=== PATIENT | male | born 1980 | race Hispanic/Latino ===

== ENCOUNTER 2023-09-09 18:37 | Inpatient (IN) | payer MEDICAID, SELFPAY ==
[~2023-09-09 18:37] MED LIST: Iopamidol-370 76% 500 ML MDV (1 ML CHARGE) ONE
[2023-09-09] MEDS ORDERED: Morphine 4 MG/ML VIAL ONE ×2 (19:38→21:31)
[2023-09-09] MEDS ORDERED: Vancomycin 1 GM/200 ML (FROZEN) BAG ONE (20:13)
[2023-09-09] MEDS ORDERED: Acetaminophen 500 MG TAB ONE (20:13)
[2023-09-09] MEDS ORDERED: Piperacillin/Tazobactam 3.375 GM VIAL ONE (20:13)
[2023-09-09] MEDS ORDERED: Sodium Chloride 0.9% 100 ML ONE (20:14)
[2023-09-09 20:20] LABS: #Basophils 0.1 thou/uL (0.0-0.2); #Monocytes 1.1 thou/uL (0.11-0.59); #Neutrophils 13.4 thou/uL (1.40-6.50); %Basophils 0.3 % (0.0-1.0); %Eosinophils 0.1 % (0.0-10.0); %Lymphocytes 9.1 % (21.0-51.0); Hematocrit 45.2 % (42.0-52.0); Hemoglobin 16.2 g/dL (14.0-18.0); Mean Corpuscular HGB CONC 35.8 g/dL (32.0-36.0); Mean Corpuscular Volume 92.1 fl (78.0-98.0); Mean Platelet Volume 11.1 fL (7.4-10.4); Platelet Count 210 10x3/uL (130-400); RBC Distribution Width 10.8 % (11.5-14.5); Red Blood Cell (RBC) Count 4.91 mill/uL (4.70-6.10); White Blood Cell (WBC) Count 16.2 10x3/uL (4.8-10.8)
[2023-09-09] MEDS ORDERED: Clindamycin/D5W 900 MG in Premix 1 BAG IVPB SCH (20:30)
[2023-09-09 20:45] LABS: INR-International Normal Ratio 1.1; Prothrombin Time 14.6 sec (12.0-14.7)
[2023-09-09 20:46] LABS: PTT 29.5 sec (22.9-36.1)
[2023-09-09 20:49] LABS: CRP (Inflammatory) 31.78 mg/dL (= or < 0.5)
[2023-09-09 20:51] LABS: ALT (SGPT) 11 U/L (8-55); AST (SGOT) 10 U/L (5-34); Albumin 4.1 g/dL (3.5-5.0); Alkaline Phosphatase 134 U/L (40-110); Anion Gap 19 mmol/L (10-20); BUN (Urea Nitrogen) 8 mg/dL (8.9-20.6); Bilirubin, Total 1.2 mg/dL (0.2-1.2); Calc. Creatinine Clearance 0 mL/min (70-130); Calcium 9.3 mg/dL (7.8-10.44); Carbon Dioxide 20 mmol/L (22-29); Chloride 99 mmol/L (98-107); Estimated GFR 112; Globulin 3.8 g/dL (2.4-3.5); Glucose 278 mg/dL (70-105); Potassium 3.8 mmol/L (3.5-5.1); Protein, Total 7.9 g/dL (6.0-8.3); Sodium 134 mmol/L (136-145)
[2023-09-09] MEDS ORDERED: fentaNYL PF 100 MCG/2 ML SYRINGE ONE ×2 (21:05→22:51)
[2023-09-09] MEDS ORDERED: Dexmedetomidine 200 MCG/2 ML VIAL ONE (21:32)
[2023-09-09] MEDS ORDERED: Ondansetron HCl/PF 4 MG/2 ML Vial IVP PRN (21:48)
[2023-09-09] MEDS ORDERED: PACU-Morphine 4MG/ML VIAL SLOW IVP PRN (21:48)
[2023-09-09] MEDS ORDERED: Promethazine HCl 25 MG/ML VIAL IM PRN (21:48)
[2023-09-09] MEDS ORDERED: Ondansetron PF 4 MG/2 ML Vial ONE (21:54)
[2023-09-09] MEDS ORDERED: Succinylcholine 200 MG/10 ml SYRINGE FS ONE (21:54)
[2023-09-09] MEDS ORDERED: Lidocaine 1% PF 5 ML VIAL ONE (21:54)
[2023-09-09] MEDS ORDERED: PROPOFOL 200 MG/20 ML VIAL ONE (21:54)
[2023-09-09] MEDS ORDERED: Rocuronium Bromide 10 MG/ML (10ML VIAL) ONE (21:54)
[2023-09-10 00:57] VITALS: BMI 30.9
[2023-09-10] MEDS ORDERED: Acetaminophen 650 MG Suppository PR PRN (01:18)
[2023-09-10] MEDS ORDERED: Acetaminophen 325 MG TAB PO PRN (01:18)
[2023-09-10] MEDS ORDERED: Ondansetron ODT 4 MG TAB PO PRN (01:18)
[2023-09-10] MEDS ORDERED: Ondansetron PF 4 MG/2 ML Vial IVP PRN (01:18)
[2023-09-10] MEDS ORDERED: Acetaminophen 500 MG TAB PO PRN (01:19)
[2023-09-10] MEDS: Sodium Chloride 0.9% 1,000 ML IV SCH ×2 (01:31→06:44)
[2023-09-10] MEDS ORDERED: Dextrose 5% in Water 1,000 ML IV PRN (01:33)
[2023-09-10] MEDS ORDERED: Dextrose 50% Abboject 50 ML SYRINGE SLOW IVP PRN (01:33)
[2023-09-10] MEDS ORDERED: Glucagon 1 MG/ML KIT IM PRN (01:33)
[2023-09-10] MEDS: Piperacillin/Tazobactam 3.375 GM in Sodium Chloride 0.9% 100 ML IVPB SCH ×3 (01:46→17:58)
[2023-09-10] MEDS: Morphine 2 MG/ML VIAL SLOW IVP PRN ×5 (01:50→22:18)
[2023-09-10] MEDS: HumaLOG 300 UNITS/3 ML VIAL SC PRN ×3 (05:34→22:19)
[2023-09-10] MEDS: Vancomycin (BATCH) 1.25 GM in Premix 1 BAG IVPB SCH ×2 (05:34→16:20)
[2023-09-10 06:18] LABS: Hemoglobin A1c 8.9 % (4.0-6.0)
[2023-09-10 06:22] LABS: #Basophils 0.1 thou/uL (0.0-0.2); #Eosinphils 0.1 thou/uL (0.0-0.7); #Monocytes 1.2 thou/uL (0.11-0.59); #Neutrophils 10.4 thou/uL (1.40-6.50); %Basophils 0.4 % (0.0-1.0); %Eosinophils 0.7 % (0.0-10.0); %Lymphocytes 11.5 % (21.0-51.0); %Monocytes 9.2 % (0.0-10.0); %Neutrophils 77.5 % (42.0-75.0); Hematocrit 39.6 % (42.0-52.0); Hemoglobin 13.7 g/dL (14.0-18.0); Mean Corpuscular HGB CONC 34.6 g/dL (32.0-36.0); Mean Corpuscular Hemoglobin 32.9 pg (27.0-31.0); Mean Platelet Volume 11.2 fL (7.4-10.4); Platelet Count 183 10x3/uL (130-400); RBC Distribution Width 11.2 % (11.5-14.5); Red Blood Cell (RBC) Count 4.16 mill/uL (4.70-6.10); White Blood Cell (WBC) Count 13.4 10x3/uL (4.8-10.8)
[2023-09-10 06:24] LABS: Mean Corpuscular Volume 95.2 fl (78.0-98.0)
[2023-09-10 06:36] LABS: Anion Gap 17 mmol/L (10-20); BUN (Urea Nitrogen) 8 mg/dL (8.9-20.6); Calc. Creatinine Clearance 162 mL/min (70-130); Calcium 8.1 mg/dL (7.8-10.44); Carbon Dioxide 21 mmol/L (22-29); Chloride 102 mmol/L (98-107); Estimated GFR 116; Glucose 203 mg/dL (70-105); Potassium 3.5 mmol/L (3.5-5.1); Sodium 136 mmol/L (136-145)
[2023-09-10] MEDS: HYDROcodone/Acetaminophen 5/325 mg Tablet PO PRN (08:37)
[2023-09-10] MEDS: Famotidine 20 MG TAB PO SCH ×2 (08:38→22:19)
[2023-09-10] MEDS ORDERED: Vancomycin 1 GM in Premix 1 BAG IVPB SCH (09:00)
[2023-09-10] MEDS ORDERED: metFORMIN 500 MG TAB PO SCH (09:30)
[2023-09-10] MEDS ORDERED: Benzocaine 20% Spray 60 ML CAN PO PRN (15:54)
[2023-09-10] MEDS ORDERED: Lidocaine 4% Patch TD SCH (16:00)
[2023-09-10] MEDS: metFORMIN 500 MG TAB PO SCH (17:58)
[2023-09-10 21:24] LABS: Vancomycin, Trough 12.3 ug/mL
[2023-09-10] MEDS: Vancomycin (BATCH) 1.5 GM in Premix 1 BAG IVPB SCH (22:19)
[2023-09-11] MEDS: Piperacillin/Tazobactam 3.375 GM in Sodium Chloride 0.9% 100 ML IVPB SCH ×3 (03:00→17:50)
[2023-09-11] MEDS: Morphine 2 MG/ML VIAL SLOW IVP PRN (03:03)
[2023-09-11] MEDS: Transdermal Patch Removal TOP SCH (03:20)
[2023-09-11] MEDS: Vancomycin (BATCH) 1.5 GM in Premix 1 BAG IVPB SCH (05:58)
[2023-09-11] MEDS: HYDROcodone/Acetaminophen 5/325 mg Tablet PO PRN (06:03)
[2023-09-11] MEDS: HumaLOG 300 UNITS/3 ML VIAL SC PRN ×4 (06:06→20:46)
[2023-09-11 06:41] LABS: #Basophils 0.1 thou/uL (0.0-0.2); #Eosinphils 0.1 thou/uL (0.0-0.7); #Neutrophils 7.1 thou/uL (1.40-6.50); %Basophils 0.9 % (0.0-1.0); %Eosinophils 0.8 % (0.0-10.0); %Monocytes 9.9 % (0.0-10.0); %Neutrophils 73.2 % (42.0-75.0); Hemoglobin 14.7 g/dL (14.0-18.0); Mean Corpuscular Hemoglobin 32.6 pg (27.0-31.0); Mean Corpuscular Volume 93.1 fl (78.0-98.0); Mean Platelet Volume 11.2 fL (7.4-10.4); Platelet Count 207 10x3/uL (130-400); Red Blood Cell (RBC) Count 4.51 mill/uL (4.70-6.10); White Blood Cell (WBC) Count 9.8 10x3/uL (4.8-10.8)
[2023-09-11 07:36] LABS: Anion Gap 16 mmol/L (10-20); BUN (Urea Nitrogen) 6 mg/dL (8.9-20.6); Calc. Creatinine Clearance 150 mL/min (70-130); Calcium 8.6 mg/dL (7.8-10.44); Carbon Dioxide 24 mmol/L (22-29); Chloride 99 mmol/L (98-107); Estimated GFR 113; Glucose 228 mg/dL (70-105); Potassium 3.3 mmol/L (3.5-5.1); Sodium 136 mmol/L (136-145)
[2023-09-11] MEDS: metFORMIN 500 MG TAB PO SCH ×2 (08:47→16:06)
[2023-09-11] MEDS: Famotidine 20 MG TAB PO SCH ×2 (08:48→20:45)
[2023-09-11] MEDS ORDERED: Lidocaine 4% Patch TD SCH (09:00)
[2023-09-11] MEDS ORDERED: Potassium Chloride 20 MEQ TAB PO SCH (11:00)
[2023-09-11] MEDS: glipiZIDE 5 MG TAB PO SCH (16:06)
[2023-09-11] MEDS: Ketorolac Tromethamine 30 MG/ML VIAL IVP PRN (16:07)
[2023-09-12] MEDS: Piperacillin/Tazobactam 3.375 GM in Sodium Chloride 0.9% 100 ML IVPB SCH ×3 (02:01→17:02)
[2023-09-12] MEDS: Transdermal Patch Removal TOP SCH (04:29)
[2023-09-12 06:08] LABS: Anion Gap 14 mmol/L (10-20); BUN (Urea Nitrogen) 7 mg/dL (8.9-20.6); Calc. Creatinine Clearance 129 mL/min (70-130); Calcium 9.4 mg/dL (7.8-10.44); Carbon Dioxide 27 mmol/L (22-29); Chloride 102 mmol/L (98-107); Estimated GFR 103; Glucose 195 mg/dL (70-105); Potassium 4.2 mmol/L (3.5-5.1); Sodium 139 mmol/L (136-145)
[2023-09-12] MEDS: HumaLOG 300 UNITS/3 ML VIAL SC PRN ×2 (06:15→17:10)
[2023-09-12] MEDS: glipiZIDE 5 MG TAB PO SCH ×2 (06:47→17:02)
[2023-09-12] MEDS: Famotidine 20 MG TAB PO SCH ×2 (09:11→21:51)
[2023-09-12] MEDS: metFORMIN 500 MG TAB PO SCH ×2 (09:11→17:02)
[2023-09-12] MEDS: HYDROcodone/Acetaminophen 5/325 mg Tablet PO PRN ×2 (14:33→21:50)
[2023-09-13] MEDS: Piperacillin/Tazobactam 3.375 GM in Sodium Chloride 0.9% 100 ML IVPB SCH ×3 (01:54→17:54)
[2023-09-13] MEDS: Morphine 4 MG/ML VIAL SLOW IVP PRN ×2 (02:01→11:04)
[2023-09-13] MEDS: Transdermal Patch Removal TOP SCH (03:20)
[2023-09-13] MEDS ORDERED: Lidocaine 4% Topical Sol 50 ML BOT TOP SCH (08:15)
[2023-09-13] MEDS ORDERED: FLU VACC QS2023-24(6MOS UP)/PF 60 MCG/0.5 ML SYRINGE IM ONE (09:00)
[2023-09-13] MEDS: HYDROcodone/Acetaminophen 5/325 mg Tablet PO PRN ×2 (09:14→18:07)
[2023-09-13] MEDS: metFORMIN 500 MG TAB PO SCH ×2 (09:15→17:53)
[2023-09-13] MEDS: glipiZIDE 5 MG TAB PO SCH ×2 (09:15→17:53)
[2023-09-13] MEDS: Famotidine 20 MG TAB PO SCH ×2 (09:15→21:05)
[2023-09-13] MEDS: HumaLOG 300 UNITS/3 ML VIAL SC PRN (12:09)
[2023-09-13] MEDS: Ketorolac Tromethamine 30 MG/ML VIAL IVP PRN (21:09)
[2023-09-14] MEDS: HYDROcodone/Acetaminophen 5/325 mg Tablet PO PRN ×3 (01:20→18:35)
[2023-09-14] MEDS: Piperacillin/Tazobactam 3.375 GM in Sodium Chloride 0.9% 100 ML IVPB SCH ×3 (01:20→18:36)
[2023-09-14] MEDS: Transdermal Patch Removal TOP SCH (04:25)
[2023-09-14] MEDS: Ketorolac Tromethamine 30 MG/ML VIAL IVP PRN (06:12)
[2023-09-14] MEDS: Famotidine 20 MG TAB PO SCH (08:52)
[2023-09-14] MEDS: metFORMIN 500 MG TAB PO SCH ×2 (08:52→18:35)
[2023-09-14] MEDS: glipiZIDE 5 MG TAB PO SCH ×2 (08:53→18:35)
[2023-09-14 12:44] VITALS: TEMP 98
[2023-09-14 17:30] VITALS: BP 115/74
== END 2023-09-14 18:41 | disposition home or self-care (01) | DRG 872 ==
LOC: ERS 18:37 → SDC/OP 21:49 → SJJU 23:58
PROVIDERS: ADMIT Urology; ATTEND Family Medicine
PROC: 0W9M0ZZ Drainage of Male Perineum, Open Approach (ICD-10-PCS; principal; 2023-09-09)
DX: A41.9 Sepsis, unspecified organism (principal); L02.215 Cutaneous abscess of perineum; E11.65 Type 2 diabetes mellitus with hyperglycemia; Z55.6 Problems related to health literacy; Z79.4 Long term (current) use of insulin; Z79.2 Long term (current) use of antibiotics; Z79.899 Other long term (current) drug therapy
CPT/HCPCS: 36415; 36416; 74177; 80048; 80053; 80202; 83036; 83605; 83690; 85025; 85610; 85730; 86140; 86850; 86900; 86901; 87040; 87070; 87205; 96361; 96365; 96375; 96376; 97139; J1815; J1885; J2270; J2272; J2405; J2543; J2704; J3370; J3370-JW; J3490; J7050; Q9967